=== PATIENT | female | born 1960 | race Caucasian/White ===

== ENCOUNTER → 2017-09-16 | Outpatient (CLI) | payer BC | LOC: MAMMO 15:07 | PROVIDERS: ATTEND Obstetrics & Gynecology | DX: Z12.31 Encounter for screening mammogram for malignant neoplasm of breast (principal) ==

== ENCOUNTER → 2018-05-26 | Outpatient (CLI) | payer BC ==
--- NOTE | 2018-05-26 11:54 | Diagnostic Imaging Report ---
EXAM: Complete Abdominal Ultrasound INDICATION: Abdominal pain COMPARISON: None. TECHNIQUE: Transverse and longitudinal images of the upper abdomen were obtained. FINDINGS: Liver: Size: 17.5 cm in the right midclavicular line, enlarged Appearance: Normal echogenicity, smooth contour Mass: 1.6 x 0.8 x 1.8 cm slightly complex anechoic lesion in the left hepatic lobe. 2.7 x 1.5 x 3.0 cm slightly complex anechoic lesion in the left hepatic lobe. 5.2 x 4.4 x 4.1 cm slightly complex anechoic lesion in the right hepatic lobe Spleen: Size: 11.5 cm in length, normal Echogenicity: Normal Mass: No focal masses Gallbladder: Stones/Sludge: None Wall: 0.3 cm Appearance: No wall thickening, pericholecystic fluid or hydrops. Sonographic Tilley's Sign: Negative Bile Ducts: Intrahepatic Ducts: No dilatation Extrahepatic Ducts: Common bile duct measures 0.3 cm, no dilatation Pancreas: Visualized portions of the pancreatic head, neck and proximal body are normal. Kidneys: Length: Right 9.1 cm Left 11.4 cm Echogenicity: Normal Collecting System: No hydronephrosis Stone: None Cyst/Mass: None Vessels: Aorta: Visualized portions are normal Inferior Vena Cava: Visualized portions are normal Main Portal Vein: 1.1 cm, normal size with hepatopetal flow. Free Fluid: No ascites or pleural effusion IMPRESSION: Slightly complex anechoic lesions in the liver most likely due to cysts. The largest measures 5.2 cm in maximal dimension. No gallbladder stones or sludge is seen. No renal stones are seen. Signed by: Dr. Jean Pierre Mcgill M.D. on 05/26/2018 11:50 AM
== END ==
LOC: US 10:12
PROVIDERS: ATTEND Family Medicine
DX: R10.9 Unspecified abdominal pain (principal)
CPT/HCPCS: 76700

== ENCOUNTER → 2018-06-02 | Outpatient (CLI) | payer BC ==
[~2018-06-02] MED LIST: GADOBENATE DIMEGLUMINE 1 ML IV ONE; SODIUM CHLORIDE 0.9% 50ML 50 ML ONE
[2018-06-02 17:10] LABS: BLOOD UREA NITROGEN 22 mg/dL (7-26); BUN/CREATININE RATIO 27 (6-25); CREATININE, SERUM 0.82 mg/dL (0.57-1.11); EST GLOMERULAR FILTRATION RATE > 60 ML/MIN (60-)
--- NOTE | 2018-06-05 11:54 | Diagnostic Imaging Report ---
EXAM: MR Abdomen WITHOUT and WITH Contrast INDICATION: ^LIVER LESIONS COMPARISON: Abdominal ultrasound 05/26/2018 TECHNIQUE: Multiplanar and multisequence imaging was performed of the abdomen without and with contrast. T1-weighted, T2-weighted images, T1-weighted in and [id number], and Diffusion weighted images. Dynamic, post gadolinium T1-weighted spoiled gradient echo scans. IV Contrast: 20 mL of MultiHance gadolinium Oral Contrast: None Medications: None COMPLICATIONS: None FINDINGS: LOWER THORAX: Unremarkable. HEPATOBILIARY: There is diffuse loss of signal on out of phase images, consistent with diffuse hepatic steatosis. Multiple bilateral T2 hyperintense nonenhancing cysts. Several of these cysts are lobulated with partial-thickness septations. * 2.2 x 2.1 cm lesion in segment 2 (series 5, image 15). * 2.2 x 2.9 cm lesion in segment 2 (series 5, image 15). * 2.2 x 3.1 cm partially exophytic cyst in segment 2 (series 5, image 16). * 4.6 x 5.3 cm lesion in segment 5/6 (series 5 image 33). * 1.7 x 1.7 cm multiloculated cystic nonenhancing lesion in segment 5/6 (series 5 image 36) with adjacent cortical retraction. This may represent previous biopsy versus previously ruptured cyst. No biliary ductal dilation. GALLBLADDER: No radio-opaque stones or sludge. No wall thickening. SPLEEN: No splenomegaly. PANCREAS: No focal masses or ductal dilatation. ADRENALS: No adrenal nodules KIDNEYS/URETERS: Kidneys enhance symmetrically. No hydronephrosis. 0.7 cm T2 hyperintense nonenhancing cyst in the inferior pole of the right kidney. No stones. GI TRACT: No abnormal distention, wall thickening, or evidence of bowel obstruction. Appendix is normal. LYMPH NODES: No lymphadenopathy. VESSELS: Unremarkable. PERITONEUM / RETROPERITONEUM: No free air or fluid. BONES: Unremarkable. SOFT TISSUES: Unremarkable. IMPRESSION: 1. Multiple minimally complex hepatic cysts. 2. Mildly complex 1.7 cm cystic lesion in segment 5/6 with capsular retraction. Recommend 6 month follow-up MRI. 3. Diffuse hepatic steatosis. Signed by: Dr. David Carlisle M.D. on 06/05/2018 11:51 AM
== END ==
LOC: MRI 16:13
PROVIDERS: ATTEND Family Medicine
DX: K76.9 Liver disease, unspecified (principal); R93.5 Abnormal findings on diagnostic imaging of other abdominal regions, including retroperitoneum
CPT/HCPCS: 36415; 74183; 82565; 84520; A9577

== ENCOUNTER → 2018-11-03 | Outpatient (CLI) | payer BC | LOC: MAMMO 15:24 | PROVIDERS: ATTEND Obstetrics & Gynecology | DX: Z12.31 Encounter for screening mammogram for malignant neoplasm of breast (principal) | CPT/HCPCS: 77067 ==

== ENCOUNTER → 2019-12-28 | Outpatient (CLI) | payer BC | LOC: MAMMO 14:49 | PROVIDERS: ATTEND Obstetrics & Gynecology | DX: Z12.31 Encounter for screening mammogram for malignant neoplasm of breast (principal) | CPT/HCPCS: 77067 ==

== ENCOUNTER → 2020-11-14 | Outpatient (CLI) | payer BC | LOC: RAD 08:43 | PROVIDERS: ATTEND Family Medicine | DX: M25.551 Pain in right hip (principal) ==

== ENCOUNTER → 2021-01-21 | Outpatient (CLI) | payer BC | LOC: MAMMO 13:34 | PROVIDERS: ATTEND Obstetrics & Gynecology | DX: Z12.31 Encounter for screening mammogram for malignant neoplasm of breast (principal) | CPT/HCPCS: 77067 ==

== ENCOUNTER → 2021-06-12 | Outpatient (CLI) | payer BC | LOC: RAD 13:44 | PROVIDERS: ATTEND Family Medicine | DX: R05.3 Chronic cough (principal) | CPT/HCPCS: 71046 ==

== ENCOUNTER → 2022-02-10 | Outpatient (CLI) | payer BC | LOC: MAMMO 15:30 | PROVIDERS: ATTEND Obstetrics & Gynecology | DX: Z12.31 Encounter for screening mammogram for malignant neoplasm of breast (principal) | CPT/HCPCS: 77067 ==

== ENCOUNTER → 2024-03-02 | Outpatient (REF) | payer OTHER ==
[~2024-03-02] MED LIST changes: +AREDS PO; +ASPIRIN81 MG PO; +CYTOMEL25 MCG PO; -GADOBENATE DIMEGLUMINE 1 ML IV ONE; +IBUPROFEN200 MG PO; +LEXAPRO20 MG PO; +METOPROLOL SUC100 MG PO; +MULTIPLE VITAM1 EAC2 PO; -SODIUM CHLORIDE 0.9% 50ML 50 ML ONE; +TRAZODONE HCL50 MG PO; +TUMERIC PO; +TYLENOL325 MG PO
== END ==
LOC: MAMMO 15:32
PROVIDERS: ATTEND Obstetrics & Gynecology
DX: Z12.31 Encounter for screening mammogram for malignant neoplasm of breast (principal)
CPT/HCPCS: 77067

== ENCOUNTER → 2024-11-30 | Outpatient (REF) | payer OTHER | LOC: DX 15:39 | PROVIDERS: ATTEND Family Medicine | DX: Z13.820 Encounter for screening for osteoporosis (principal) | CPT/HCPCS: 77080 ==

== ENCOUNTER → 2025-03-06 | Outpatient (REF) | payer OTHER | LOC: MAMMO 16:07 | PROVIDERS: ATTEND Family Medicine | DX: Z12.31 Encounter for screening mammogram for malignant neoplasm of breast (principal) | CPT/HCPCS: 77067 ==